=== PATIENT | male | born 1965 | race Caucasian/White ===

== ENCOUNTER 2023-10-07 17:47 | Emergency (ER) | payer SELFPAY ==
[~2023-10-07] VITALS: Ht 175.3 cm; Wt 85.0 kg
[2023-10-07 17:55] VITALS: BP 143/90; PULSE 102; RESP 16; TEMP 98.6; O2SAT 98
== END 2023-10-07 18:00 | disposition left against medical advice (07) ==
LOC: ER 17:47
DX: Z04.89 Encounter for examination and observation for other specified reasons (principal); Z53.21 Procedure and treatment not carried out due to patient leaving prior to being seen by health care provider